=== PATIENT | male | born 1975 | race American Indian/Alaskan Native ===

== ENCOUNTER 2017-08-26 15:39 | Emergency (ER) | payer SELFPAY ==
[2017-08-26 15:52] VITALS: BP 136/94
--- NOTE | 2017-08-26 19:11 | Emergency Department Report ---
Eye Injury/Foreign Body - HPI Duration: 2 Days Eye Location: Bilateral Severity: Moderate Eye Symptoms: Eye Pain: No, Blurred Vision: Yes, Eye Redness: Yes, Grinding/ Hammering Metal: No, Used Eye Protection: No, Contact Lens Use: No, Recalls Injury: No, Photophobia: Yes Other History: The patient states he has bilateral eye irritation and feels though the gravel in his eyes. Patient does have a history of allergies to pollen and pollen season has just started. Patient thinks it is most likely his cause he is been sneezing and runny nose as well for last several days also. ED Review of Systems ROS: Stated complaint: PAIN IN BOTH EYES Other details as noted in HPI Comment: All other systems reviewed and negative ED Past Medical Hx - Past Medical History Previous Medical History?: No - Surgical History Past Surgical History?: No - Social History Smoking Status: Current Some Day Smoker Substance Use Type: Alcohol, Marijuana - Medications Home Medications: Home Medications Medication Instructions Recorded Confirmed Last Taken Type Loratadine [Claritin] 10 mg PO DAILY #30 tablet 08/26/17 Unknown Rx Naphazoline HCl/Pheniramine 15 ml OP BID #1 bottle 08/26/17 Unknown Rx [Naphcon-A Eye Drops] Olopatadine HCl [Patanol 0.1%] 1 drop OP BID #1 bottle 08/26/17 Unknown Rx Eye Injury Exam - Exam General: Vital signs noted. No distress. Alert and acting appropriately. Patient's bilateral eyes show conjunctival injection there is no exudate and there is no scleral edema. Extraocular movements are intact. Patient's heart lungs abdomen exams are within normal limits. ED Course Vital Signs 08/26/17 15:49 Temperature 98.7 F Pulse Rate 86 Respiratory 16 Rate Blood Pressure 136/94 O2 Sat by Pulse 99 Oximetry Critical care attestation.: If time is entered above; I have spent that time in minutes in the direct care of this critically ill patient, excluding procedure time. ED Disposition Clinical Impression: Allergic conjunctivitis and rhinitis Qualifiers: Laterality: bilateral Qualified Code(s): H10.13 - Acute atopic conjunctivitis, bilateral; J30.9 - Allergic rhinitis, unspecified Disposition: DC-01 TO HOME OR SELFCARE Is pt being admited?: No Does the pt Need Aspirin: No Condition: Stable Instructions: Allergic Rhinitis (ED) Additional Instructions: If she cannot afford the Patanol drops please try Naa [id number] eyedrops Prescriptions: Loratadine [Claritin] 10 mg PO DAILY #30 tablet Naphazoline HCl/Pheniramine [Naphcon-A Eye Drops] 15 ml OP BID #1 bottle Olopatadine HCl [Patanol 0.1%] 1 drop OP BID #1 bottle Referrals: PRIMARY CARE, [Primary Care Provider] - 3-5 Days
== END 2017-08-26 19:30 | disposition home or self-care (01) ==
LOC: ED 15:39
DX: H10.13 Acute atopic conjunctivitis, bilateral (principal); J30.9 Allergic rhinitis, unspecified; F17.200 Nicotine dependence, unspecified, uncomplicated
CPT/HCPCS: 99281